=== PATIENT | female | born 1980 | race Caucasian/White ===

== ENCOUNTER 2020-02-17 14:51 | Emergency (ER) | payer BC ==
--- NOTE | 2020-02-17 16:35 | CR ---
Indication: Pt hurt lt ring finger during volleyball today. Technique: Left hand 3 views. Comparison: None Findings: Bones: Flexion deformity of the ring finger DIP joint noted with mild extension at the PIP joint. No fractures or bone lesions. Joint spaces: Unremarkable. Soft tissues: Unremarkable. Impression: Flexion deformity at the left ring finger DIP joint suggesting soft tissue injury. There is no fracture. Dictated by Moody Stewart MD @ Feb 17 2020 4:32PM Signed by Dr. Moody Stewart @ Feb 17 2020 4:33PM
--- NOTE | 2020-02-17 16:50 | EDM.PDOC ---
ED HPI GENERAL MEDICAL PROBLEM - General Chief Complaint: Upper Extremity Injury/Pain Stated Complaint: LT RING FINGER POSSBILE BROKEN Time Seen by Provider: 02/17/20 14:59 - History of Present Illness INITIAL COMMENTS - FREE TEXT/NARRATIVE: HISTORY AND PHYSICAL: History of present illness: 39-year-old female was playing volleyball yesterday night against the senior team in a scrimmage when she received a volleyball to the left index fingertip. The finger no longer would completely extend at the DIP. She went to bed hoping it would feel better tomorrow. Worse with movement. Better with rest. Mildly tender. Review of systems: A 10-point review of systems, other than pertinent positives and negatives as stated per HPI, is otherwise negative. Past medical history: As per history of present illness and as reviewed below otherwise noncontributory. Surgical history: As per history of present illness and as reviewed below otherwise noncontributory. Social history: No reported history of drug or alcohol abuse. Family history: As per history of present illness and as reviewed below otherwise noncontributory. Physical exam: VITAL SIGNS: Reviewed. GENERAL: In no apparent distress. HEAD: No signs of head trauma. EYES: Pupils are equal. Extraocular motions intact. EARS: Hearing grossly intact. MOUTH: Oropharynx is normal. NECK: No adenopathy, no JVD. CHEST: Chest with clear breath sounds bilaterally. No wheezes, rales, or rhonchi. CARDIAC: Regular rate and rhythm. Normal S1 and S2, without murmurs, gallops, or rubs. VASCULAR: Peripheral pulses normal and equal in all extremities. ABDOMEN: Soft, without detectable tenderness. No sign of distention. No rebound or guarding, and no masses palpated. MUSCULOSKELETAL: Mallet finger/boutonniere deformity on the left ring finger. Moderate pain at the DIP. Unable to fully extend. NEUROLOGIC EXAM: Alert and oriented x 3. No focal sensory or motor deficits. Speech normal. Follows commands. PSYCHIATRIC: Mood normal. SKIN: No rash or lesions. Initial Differential Diagnosis & Plan: Extensor tendon rupture, fracture, dislocation I suspect this is a mallet finger with a boutonniere deformity given the appearance. Likely will require splinting and follow-up with orthopedic/hand surgery. X-rays to confirm or rule out fracture. Definitive disposition and diagnosis as appropriate pending reevaluation and review of above. left ring finger Pain Score (Numeric/FACES): 1 - Related Data Allergies Allergy/AdvReac Type Severity Reaction Status Date / Time promethazine [From Phenergan] Allergy Hives Verified 02/17/20 15:47 Home Meds: Home Meds . [No Known Home Meds] 02/17/20 [History] Past Medical History - Infectious Disease History Infectious Disease History: Reports: Chicken Pox - Past Surgical History GI Surgical History: Reports: Other (See Below) Other GI Surgeries/Procedures: colorectal surgery Female Surgical History: Reports: Section Social & Family History - Family History Family Medical History: Noncontributory - Tobacco Use Smoking Status *Q: Never Smoker - Caffeine Use Caffeine Use: Reports: Coffee - Recreational Drug Use Recreational Drug Use: No Review of Systems - Review of Systems Review Of Systems: See Below (noted) ED EXAM, GENERAL - Physical Exam Exam: See Below (noted) ED TRAUMA EXTREMITY PROCEDURES - Additional/Other Procedure(s) Other (Free Text) Procedure(s): PROCEDURE: Fracture Care/extensor tendon rupture care LOCATION AND FRACTURE TYPE: Left index finger extensor tendon rupture INDICATION: Fracture DETAILS: Inline traction was applied with return of normal anatomic alignment. SPLINTING PROCEDURE NOTE: Short aluminum splint with hyper extension of the DIP joint on the left ring finger COMPLICATIONS: None NEUROVASCULAR EXAM: intact both before and after procedure. Course - Vital Signs Last Recorded V/S: Last Vital Signs Temp 97.0 F 02/17/20 15:47 Pulse 59 L 02/17/20 17:30 Resp 16 02/17/20 17:30 BP 135/70 02/17/20 17:30 Pulse Ox 100 02/17/20 17:30 Departure - Departure Time of Disposition: 16:44 Disposition: Home, Self-Care 01 Clinical Impression: Rupture of extensor tendon of finger, Boutonniere deformity of finger, Mallet deformity of left ring finger - Discharge Information *PRESCRIPTION DRUG MONITORING PROGRAM REVIEWED*: Not Applicable *COPY OF PRESCRIPTION DRUG MONITORING REPORT IN PATIENT JAMIN: Not Applicable Instructions: Mallet Finger Referrals: Toña Milner MD [Primary Care Provider] - Forms: ED Department Discharge Additional Instructions: The following information is given to patients seen in the emergency department who are being discharged to home. This information is to outline your options for follow-up care. We provide all patients seen in our emergency department with a follow-up referral. The need for follow-up, as well as the timing and circumstances, are variable depending upon the specifics of your emergency department visit. If you don't have a primary care physician on staff, we will provide you with a referral. We always advise you to contact your personal physician following an emergency department visit to inform them of the circumstance of the visit and for follow-up with them and/or the need for any referrals to a consulting specialist. The emergency department will also refer you to a specialist when appropriate. This referral assures that you have the opportunity for follow-up care with a specialist. All of these measure are taken in an effort to provide you with optimal care, which includes your follow-up. Thank you for coming to the [facility] urgency department for your care today. It was Dr. Pastor's pleasure to take care of you. [facility] [address], [address] [place] [address] Mallet finger. This is secondary to injury of the extensor tendon at the DIP joint. Many times you will need follow-up with a hand surgeon. We have placed you on the hand surgery follow-up. This is likely from impact of the volleyball on your ring finger nailbed. This causes a sudden rupture and requires splinting. Please wear the splint for 3 to 6 weeks as directed. Return to the emergency department for worsening. Under all circumstances we always encourage you to contact your private physician who remains a resource for coordinating your care. When calling for follow-up care, please make the office aware that this follow-up is from your recent emergency room visit. If for any reason you are refused follow-up, please contact the [facility] Emergency Department at and asked to speak to the emergency department charge nurse. Sepsis Event Note (ED) - Evaluation Sepsis Screening Result: No Definite Risk - Focused Exam Vital Signs: Vital Signs Temp Pulse Resp BP Pulse Ox 02/17/20 17:30 59 L 16 135/70 100 02/17/20 15:47 97.0 F 64 18 125/79 99
[2020-02-17 17:34] VITALS: BP 135/70; PULSE 59
--- NOTE | 2020-02-17 17:42 | CR ---
Indication: Boutonniere deformity Technique: Three views left ring finger Comparison: Hand x-ray earlier today Findings: No fracture is present. Extension deformity at the ring finger PIP joint and flexion deformity at the ring finger DIP joint again noted. Impression: Flexion deformity at the DIP joint and extension deformity at the PIP joint. Dictated by Moody Stewart MD @ Feb 17 2020 5:38PM Signed by Dr. Moody Stewart @ Feb 17 2020 5:40PM
== END 2020-02-17 17:32 | disposition home or self-care (01) ==
LOC: MW.ED 14:51
DX: S66.315A Strain of extensor muscle, fascia and tendon of left ring finger at wrist and hand level, initial encounter (principal); M20.022 Boutonniere deformity of left finger(s); M20.012 Mallet finger of left finger(s); Z88.8 Allergy status to other drugs, medicaments and biological substances; W21.06XA Struck by volleyball, initial encounter; Y93.68 Activity, volleyball (beach) (court)
CPT/HCPCS: 26670; 26770; 73130-26-LT; 73130-LT; 73140-26-F3; 73140-F3; 99283; 99283-25